=== PATIENT | male | born 1970 | race Caucasian/White ===

== ENCOUNTER 2024-02-15 14:39 | Outpatient (CLI) | payer OTHER, SELFPAY ==
--- NOTE | ~2024-02-15 | CT_ITS ---
EXAMINATION: CT wrist RT wo con DATE: 02/15/2024 15:04 INDICATION: Right wrist pain. Arthritis. TECHNIQUE: Computed tomography (CT) of the right wrist was performed without intravenous contrast. Au tomated exposure control and iterative reconstruction technique were employed. The dose-length produc t was 481.75 mGy-cm. COMPARISON: right wrist radiographs 09/20/05 FINDINGS: There is a comminuted fractures of the scaphoid. There is sclerosis of proximal fracture fr agments, consistent with osteonecrosis. 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 There is an effusion involving the distal radioulnar joint, radiocarpal joint, and midcarpal compartment with loose bodies. There a re erosions of bone including in distal radius and ulna and the dorsal aspects of capitate and hamate . There is soft tissue swelling of the hand. IMPRESSION: 1. Scaphoid nonunion advanced collapse (SNAC). 2. Communicating effusion involving the distal radioulnar joint, radial carpal compartment, and midca rpal compartment with loose bodies. 3. Erosions of bone suspicious for osteomyelitis or inflammatory arthropathy. Reviewed, dictated and finalized at location E. IMPRESSION: 1. Scaphoid nonunion advanced collapse (SNAC). 2. Communicating effusion involving the distal radioulnar joint, radial carpal compartment, and midcarpal compartment with loose bodies. 3. Erosions of bone suspicious for osteomyelitis or inflammatory arthropathy.
== END 2024-02-15 14:40 | disposition home or self-care (01) ==
PROVIDERS: Visit Provider Plastic Surgery
DX: S62.001A Unspecified fracture of navicular [scaphoid] bone of right wrist, initial encounter for closed fracture (principal); X58.XXXA Exposure to other specified factors, initial encounter
CPT/HCPCS: 73200

== ENCOUNTER 2024-05-12 08:45 | Outpatient (RCR) | payer OTHER, SELFPAY ==
--- NOTE | 2024-02-12 13:22 | OTOPEVAL1 ---
Assessment and note entered by Mike Hatfield, VICKI/Epi, CHT Evaluation Information Diagnosis Unspecified fracture of scaphoid, right wrist Subjective Information Injury 01/26/24 when his granddaughter landed on his hand. He is right handed. Presents in a splint and pam wrap that he received from the hospital. He reports high amounts of pain, reports being very limited in being able to use this hand for any ADLs. 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 Wrist CT is scheduled for Thursday, 02/14. Reported Pain Level Pain Score 8: Self Report Assessment OT Clinical Summary Patient referred to OT with dx of scaphoid fracture of the right wrist. He presents with severe pain and very limited ROM of the forearm, wrist, and digits. Today a compression glove was issued as well as finger/thumb ROM exercises to begin edema control. He is scheduled for a wrist CT on 02/14 and follows up again with Dr. Guzman on 03/01. Plan to schedule further therapy visits after these appointments due to the severe amount of pain with forearm and wrist ROM. Plan of Care Treatment Frequency and Re-assessment after further imaging and MD follow Duration up. These treatments will address the objective and functional deficits as defined above. The patient will be advanced safely and appropriately in order for the patient to progress towards his/her prior level of function. Additional exercises will be introduced and as well as a comprehensive home exercise program upon discharge, if needed, ?to ensure carryover of functional gains achieved in the clinic. This treatment plan has been reviewed and agreement upon by the patient.
--- NOTE | 2024-03-10 09:39 | OTOPPROG ---
Assessment and note entered by Mike Hatfield, VICKI/Epi, CHT OT Re-Evaluation 03/10/24 Diagnosis Unspecified fracture of scaphoid, right wrist Subjective Information Injury 01/26/24 when his granddaughter landed on his hand. He is right handed. He followed up with Dr. Guzman last week and received an injection to the wrist, which he reports helped with his pain. He has been wearing his compression glove 15/06 . He continues to be unable to use the right hand for ADLs, relying on the left for dressing, bathing, grooming, etc. Reports he is unable to sampler pickup anything with any weight. Assessment OT Clinical Summary Patient referred to OT with dx of scaphoid fracture of the right wrist. He presents today to resume care after his CT and MD follow up. He continues to report pain with wrist ROM/use. He notes that since the steroid injection that his pain has improved, but he continues to be unable to complete any sort of lifting with that hand. Difficulties gripping, lifting, and completing fine motor tasks, such as writing and buttons due to pain, stiffness, and weakness. Per MD there is no indications for surgical intervention. Therapy goals are for pain and edema control and progressing patient back into improved functional use through therapeutic exercise and activities. Plan of Care Interventions Therapeutic Exercise,Manual Therapy,Therapeutic Activities,Hot Pack/Cold Pack,Electrical Stimulation,Self-Care/Home Management,Ultrasound, Paraffin OT Services Indicated Yes Treatment Frequency and 2x/week for 8 visits Duration These treatments will address the objective and functional deficits as defined above. The patient will be advanced safely and appropriately in order for the patient to progress towards his/her prior level of function. Additional exercises will be introduced and as well as a comprehensive home exercise program upon discharge, if needed, ?to ensure carryover of functional gains achieved in the clinic. This treatment plan has been reviewed and agreement upon by the patient.
--- NOTE | 2024-03-10 09:39 | OPREHPOC ---
Outpatient Therapy Plan of Care This is a Multidisciplinary Plan of Care that may contain components documented by all disciplines (PT, OT, and ST.) OT Problem 1 OT Problem #1 Knowledge Deficit OT Goal 1 Goal Patient to be independent with instructed materials. Target Visit 10 OT Problem 2 OT Problem #2 Pain OT Goal 1 Goal Patient to be independent with non-medication pain management - ROM - Heat/Ice - Elevation - Compression glove Target Visit 10 OT Problem 3 OT Problem #3 Impaired Range of Motion OT Goal 1 Goal Patient to improve functional ROM of the right UE: - forearm supination to 80 - forearm pronation to 80 - wrist flexion to 45 - wrist extension to 45 - finger flexion to be able to make a fist, touching the finger tips to the palm Target Visit 10 OT Problem 4 OT Problem #4 Impaired Strength OT Goal 1 Goal 1. Patient to improve functional strength as demonstrated by progressing his forearm and wrist ROM HEP to being able to complete with 1lb. free weight x20 reps. 2. Patient to improve functional harp regulator strength as demonstrated by being able to complete harp regulator/pinch strengthening with yellow theraputty. Target Visit 10
--- NOTE | 2024-04-07 10:25 | OTOPPROG ---
Assessment and note entered by VICKI Maradiaga/Epi, CHT Progress Update 04/07/24 Assessment Status Progress Diagnosis Unspecified fracture of scaphoid, right wrist Subjective Information Patient reports noticing progress in the last 2 weeks. He reports he is now using his right hand for ADLs, able to pull up pants, wash his hair, and light ADL tasks that don't require a lot of wrist motion. Reports he continues to use the left hand to brush his teeth and he has severe pain when putting his hair in a ponytail. He is now able to lift objects with some weight. He continues to have difficulties with heavier tasks, such as lifting his granddaughter. He received another round of injections yesterday. Forearm pronation/supination returned to functional limits Wrist flexion remained limited at 20 degrees. Wrist extension improved from 30 to [address] improved from 5 to 10 degrees. Wrist UD improved from 10 to 20 degrees. Composite finger flexion improved from 7-8 cm gap between the finger tips and the palm to 0 cm gaps. Hook fist improved from 5-6 cm gaps to 2 cm gaps. Able to tolerate clinical services specialist strength assessment today, measuring 39 lbs. Assessment OT Clinical Summary Patient referred to OT with dx of scaphoid fracture of the right wrist. He presents today for OT reassessment after a month of therapy. Overall the patient's ROM and strength is improving and he is having less pain with use. He is now able to make a fist and tolerate some clinical services specialist strengthening. Forearm ROM has returned to functional limits. Wrist ROM continues to be limited and painful but he is progressing with being able to tolerate light strengthening of the wrist joint. He continues to have limited wrist ROM and limited use with tasks that are heavier than 5 or so pounds. Continued skilled OT indicated for continued use of modalities, manual therapy, progressive strengthening, and therapeutic exercise to facilitate reduced pain, improved strength, and return to functional use of his dominant UE. Plan of Care Interventions Therapeutic Exercise,Manual Therapy,Therapeutic Activities,Hot Pack/Cold Pack,Electrical Stimulation,Self-Care/Home Management,Ultrasound, Paraffin
--- NOTE | 2024-04-07 10:25 | OPREHPOC ---
Outpatient Therapy Plan of Care This is a Multidisciplinary Plan of Care that may contain components documented by all disciplines (PT, OT, and ST.) OT Problem 1 OT Problem #1 Knowledge Deficit OT Goal 1 Goal Patient to be independent with instructed materials. ---OT POC UPDATE 04/07/24--- 1. Met, continue as HEP is progressed Target Visit 20 OT Problem 2 OT Problem #2 Pain OT Goal 1 Goal Patient to be independent with non-medication pain management - ROM - Heat/Ice - Elevation - Compression glove ---OT POC UPDATE 04/07/24--- Met, he prefers ice and compression Target Visit 20 OT Problem 3 OT Problem #3 Impaired Range of Motion OT Goal 1 Goal Patient to improve functional ROM of the right UE: - forearm supination to 80 - forearm pronation to 80 - wrist flexion to 45 - wrist extension to 45 - finger flexion to be able to make a fist, touching the finger tips to the palm ---OT POC UPDATE 04/07/24--- Progressing all of the above, continue ROM goals Target Visit 20 OT Problem 4 OT Problem #4 Impaired Strength OT Goal 1 Goal 1. Patient to improve functional strength as demonstrated by progressing his forearm and wrist ROM HEP to being able to complete with 1lb. free weight x20 reps. 2. Patient to improve functional service center supervisor strength as demonstrated by being able to complete service center supervisor/pinch strengthening with yellow theraputty. ---OT POC UPDATE 04/07/24--- 1. Progressing, continue 2. Met, Upgrade goal: Patient to increase right service center supervisor strength to 50 lbs. Target Visit 20
--- NOTE | 2024-05-12 09:35 | OTOPDC ---
Assessment and note entered by Mike Hatfield, OTR/L, CHT OT Discharge Summary 05/12/24 Diagnosis Unspecified fracture of scaphoid, right wrist Subjective Information Patient reports progress with being able to sleep more comfortably. He reports being able to use the right hand for light tasks, but continues to have pain when using the right hand to open the car door or fridge. He has been trying to use his right hand to brush his teeth, but has to switch to the left hand. He has still been favoring his left hand for tasks. Forearm pronation/supination returned to functional limits Wrist flexion improved from 20 to 30 degrees. Wrist extension decreased from [address] improved from 10 to 13 degrees. 8/[address] Wrist UD improved from 20 to 25 degrees. Composite finger flexion remained WNL, 0 cm gap between the finger tips and the palm. Hook fist improved from 2 cm gaps to 0-1 cm gaps. Bin Worker strength remained unchanged at 35 lbs. Reported Pain Level Additional Pain Score Comments Reporting constant 2/10 pain. When the wrist is (R) wrist: stressed or bumped, the pain can get up to 10/10. Assessment OT Clinical Summary Patient referred to OT with dx of scaphoid fracture of the right wrist. He presents today for OT reassessment. He has participated in 18 sessions since the start of care. ROM of the wrist continues to be limited and painful. ROM of the fingers has improved to functional limits. Bin Worker strength has remained unchanged at 35 lbs. Therapy has been unable to progress strengthening past 1- 2 lbs. He does have temporary relief from use of paraffin and ultrasound, but the pain returns an hour later. He continues to wear a compression glove for comfort. Unfortunately it appears he has reached his maximum benefit from therapy. Reviewed HEP. Recommending he continue to complete ROM and light strengthening to his tolerance to continue to build strength around the wrist joint. D/C OT with patient independent with all materials. Plan of Care OT Services Indicated No
== END 2024-05-12 11:49 | disposition home or self-care (01) ==
LOC: ANHOT 08:45
PROVIDERS: Visit Provider Plastic Surgery
DX: S62.001D Unspecified fracture of navicular [scaphoid] bone of right wrist, subsequent encounter for fracture with routine healing (principal)
CPT/HCPCS: 97018; 97035; 97110; 97140; 97165

== ENCOUNTER 2024-07-18 10:05 | Outpatient (CLI) | payer OTHER, SELFPAY ==
--- NOTE | ~2024-07-18 | XR_ITS ---
Right wrist Technique: PA, oblique, lateral, and ulnar deviation views were obtained. Clinical History: Prior navicular fracture, pain Findings: There is a fracture through the proximal to midportion of the scaphoid, possibly chronic gi antonino provided history.. There are mild degenerative changes of the radiocarpal articulations and capit ate lunate articulation. Soft tissues are unremarkable. 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 Reviewed, dictated and finalized at location M. 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
== END 2024-07-18 10:06 | disposition home or self-care (01) ==
LOC: ANHIMG 10:06
PROVIDERS: Visit Provider Plastic Surgery
DX: S62.001A Unspecified fracture of navicular [scaphoid] bone of right wrist, initial encounter for closed fracture (principal); X58.XXXA Exposure to other specified factors, initial encounter
CPT/HCPCS: 73110